=== PATIENT | female | born 1990 | race Two or more races ===

== ENCOUNTER 2024-09-26 15:45 | Emergency (ER) | payer OTHER ==
[~2024-09-26] VITALS: Ht 160 cm; Wt 91.2 kg
[2024-09-26] MEDS ORDERED: FAMOTIDINE/PF 20 MG in 0.9 % SODIUM CHLORIDE 8 ML IV PUSH STA (16:17)
[2024-09-26] MEDS ORDERED: 0.9 % SODIUM CHLORIDE 1,000 ML IV SCH (16:30)
[2024-09-26] MEDS ORDERED: DIPHENOXYLATE HCL/ATROPINE 1 UDTAB TABLET PO ONE (16:30)
[2024-09-26] MEDS ORDERED: ONDANSETRON HCL 2 MG/ML VIAL IV ONE (16:30)
[2024-09-26 17:13] LABS: HEMATOCRIT 32.6 % (36.0-45.00); HEMOGLOBIN 10.9 g/dL (12.0-15.00); MEAN CELL VOLUME 74.4 fL (80.00-100.00); MEAN CORPUSCULAR HEMOGLOBIN 24.8 pg (27.00-32.0); MEAN CORPUSCULAR HGB CONC 33.4 g/dl (32.0-36.0); PLATELET COUNT 457 K/uL (150-450); RED BLOOD COUNT 4.38 M/uL (4.00-6.00)
[2024-09-26 17:38] LABS: ALBUMIN 3.3 gm/dL (3.4-5.0); BILIRUBIN TOTAL 0.24 mg/dL (0.3-1.2); CALCIUM 8.5 mg/dL (8.5-10.1); CREATININE SERUM 0.6 mg/dL (0.55-1.02); GFR 115.85; GLOBULINA 4.9 G/DL (2.4-3.5); POTASSIUM 3.45 mEq/L (3.5-5.1); TOTAL PROTEIN 8.2 gm/dL (6.4-8.2)
[2024-09-26] MEDS ORDERED: PEPCID AC20 MG PO (18:14)
[2024-09-26] MEDS ORDERED: ZOFRAN8 MG PO (18:14)
[2024-09-26] MEDS ORDERED: DOLOGEN CAPLET1 EACH PO (18:14)
== END 2024-09-26 18:33 | disposition home or self-care (01) ==
LOC: ER 15:46
PROVIDERS: General Practice
DX: U07.1 COVID-19 (principal); B34.9 Viral infection, unspecified; R53.81 Other malaise

== ENCOUNTER 2025-03-11 13:38 | Emergency (ER) | payer OTHER ==
[~2025-03-11] VITALS: Ht 160 cm; Wt 91.6 kg
[~2025-03-11 13:38] MED LIST: DOLOGEN CAPLET1 EACH PO; PEPCID AC20 MG PO; ZOFRAN8 MG PO
[2025-03-11 14:20] VITALS: BP 111/70; O2SAT 100
[2025-03-11] MEDS ORDERED: MOUNJARO5 MG/0.5 M SQ (14:22)
[2025-03-11] MEDS ORDERED: ONDANSETRON HCL 2 MG/ML VIAL ONE (16:40)
[2025-03-11] MEDS ORDERED: BUTALB/ACETAMINOPHEN/CAFFEINE 1 TAB TABLET PO ONE ×2 (16:45→16:53)
[2025-03-11] MEDS ORDERED: ONDANSETRON HCL 2 MG/ML VIAL IV ONE (16:45)
[2025-03-11 17:02] LABS: HEMATOCRIT 32.5 % (36.0-45.00); HEMOGLOBIN 10.6 g/dL (12.0-15.00); MEAN CELL VOLUME 71.9 fL (80.00-100.00); MEAN CORPUSCULAR HEMOGLOBIN 23.4 pg (27.00-32.0); MEAN CORPUSCULAR HGB CONC 32.6 g/dl (32.0-36.0); PLATELET COUNT 447 K/uL (150-450); RED BLOOD COUNT 4.52 M/uL (4.00-6.00); RED CELL DISTRIBUTION WIDTH 17.1 % (11.5-14.5)
[2025-03-11 17:18] LABS: COVID-19 AG NEGATIVE (NEGATIVE)
[2025-03-11 17:21] LABS: CALCIUM 9.1 mg/dL (8.5-10.1); CREATININE SERUM 0.62 mg/dL (0.55-1.02); GFR 110.85; POTASSIUM 3.13 mEq/L (3.5-5.1)
[2025-03-11 18:12] LABS: INFLUENZA A AG NEGATIVE (NEGATIVE)
[2025-03-11] MEDS ORDERED: METROnidazole 500 MG TABLET PO ONE ×2 (18:41→18:45)
[2025-03-11] MEDS ORDERED: LOPERAMIDE HCL 2 MG CAPSULE PO ONE ×2 (18:41→18:45)
== END 2025-03-11 20:31 | disposition home or self-care (01) ==
LOC: ER 13:39
PROVIDERS: Emergency Medicine
DX: B34.9 Viral infection, unspecified (principal); R19.7 Diarrhea, unspecified; Z20.822 Contact with and (suspected) exposure to COVID-19; Z91.018 Allergy to other foods